=== PATIENT | male | born 1955 | race Caucasian/White ===

== ENCOUNTER 2016-09-14 16:58 | Emergency (ER) | payer OTHER ==
[~2016-09-14] VITALS: Ht 177.8 cm; Wt 120.0 kg
[~2016-09-14 16:58] MED LIST: ATEN100T PO; HYDR-3534 PO; LISI10TA3 PO; METF1000 PO; OMEP20TA PO; SIMV20TA PO
[2016-09-14 17:00] VITALS: BP 171/86; PULSE 100; RESP 20; TEMP 98.1; O2SAT 97
[2016-09-14] MEDS ORDERED: ASPI81CH CHEW (17:17)
[2016-09-14] MEDS ORDERED: OXYC1TAB35 PO (17:17)
[2016-09-14 18:07] LABS: AUTOMATED NEUTROPHIL # 7.4 TH/MM3 (1.8-7.7); BASOPHIL # 0.1 TH/MM3 (0-0.2); BASOPHIL % 0.6 % (0.0-2.0); EOSINOPHIL # 0.2 TH/MM3 (0-0.4); EOSINOPHIL % 1.9 % (0.0-4.0); HEMATOCRIT 40.9 % (39.0-51.0); HEMO FLAGS DIFF FINAL; LYMPH % 19.1 % (9.0-44.0); LYMPHOCYTE # 2.1 TH/MM3 (1.0-4.8); MEAN CELL VOLUME 91.5 FL (80.0-100.0); MEAN CORPUSCULAR HEMOGLOBIN 30.5 PG (27.0-34.0); MEAN CORPUSCULAR HGB CONC 33.3 % (32.0-36.0); MONO % 9.3 % (0.0-8.0); NEUT % 69.1 % (16.0-70.0); PLATELET COUNT 342 TH/MM3 (150-450); RED BLOOD COUNT 4.47 MIL/MM3 (4.50-5.90); RED CELL DISTRIBUTION WIDTH 13.4 % (11.6-17.2); WHITE BLOOD COUNT 10.7 TH/MM3 (4.0-11.0)
--- NOTE | 2016-09-14 18:09 | RADRPT ---
EXAM DATE/TIME: 09/14/2016 17:43 [place] COMPARISON: No previous studies available for comparison. INDICATIONS : Hematuria. ORAL CONTRAST: No oral contrast ingested. RADIATION DOSE: 12.14 CTDIvol (mGy) MEDICAL HISTORY : Carcinoma, prostate. Cardiovascular disease Hypertension. SURGICAL HISTORY : None. ENCOUNTER: Initial ACUITY: 1 day PAIN SCALE: 4/10 LOCATION: abdomen. TECHNIQUE: Volumetric scanning of the abdomen and pelvis was performed. Using automated exposure control and ad justment of the mA and/or kV according to patient size, radiation dose was kept as low as reasonably achievable to obtain optimal diagnostic quality images. DICOM format image data is available electro nically for review and comparison. FINDINGS: Lung bases are clear. Surgical staple line noted in the stomach. Spleen, adrenals and pancreas demons trate no acute findings. There is mild perinephric stranding but no hydronephrosis or focal mass seen on noncontrast CT. No calcified gallstones or biliary ductal dilatation identified. No bowel obstruction. No free air or free fluid. No adenopathy. There is a previous right total hip replacement. Chaidez catheter in bladder. CONCLUSION: 1. No acute findings within the abdomen. Mild perinephric stranding. No renal calculi or obstructive uropathy. No bladder calculi. Chaidez catheter in decompressed bladder. Previous right hip replacement. Mike Wooten MD on September 14, 2016 at 18:03 Board Certified Radiologist. This report was verified electronically.
[2016-09-14 18:15] LABS: APTT (PATIENT) 25.3 SEC (24.3-30.1); INTERNATIONAL NORMALIZED RATIO 0.9 RATIO; PROTHROMBIN TIME - PATIENT 10.2 SEC (9.8-11.6)
--- NOTE | 2016-09-14 18:15 | PD ---
HPI Chief Complaint: Complaint Time Seen by Provider: 18:12 Travel History International Travel<30 days: No Contact w/Intl Traveler<30days: No Traveled to known affect area: No History of Present Illness HPI 60-year-old male that presents to the ED for evaluation of hematuria. Patient has a history of prostate cancer for which she had surgery and seed radiation about 15 years ago. Per patient he has had no issues until today. Per patient he had some back pain for the past couple of weeks on the left flank but he wasn 't really to worry about it. Per patient today he feels like he has to urinate and also comes out is blood. He is never had this before. Denies taking any blood thinners. No injuries. No fevers chills or sweats. No chest pain. No shortness of breath. No back pain or abdominal pain. He has had no chemotherapy or radiation recently. He has no allergies to medication. Takes an aspirin once a day. Per patient his discomfort is 3 out of 10 and only when he urinates. PFSH Past Medical History Arthritis: Yes Autoimmune Disease: No Anxiety: Yes Depression: Yes Cancer: Yes (PROSTATE) Cardiovascular Problems: Yes Diabetes: Yes Patient Takes Glucophage: No Endocrine: Yes GERD: Yes Genitourinary: Yes Hypertension: Yes Implanted Vascular Access Dvce: Yes Musculoskeletal: Yes Neurologic: No Respiratory: Yes Radiation Therapy: Yes Sleep Apnea: Yes (USES C PAP) Ulcer: Yes Past Surgical History Body Medical Devices: LEFT ANKLE WITH PLATE Cardiac Surgery: Yes (ablation) Genitourinary Surgery: Yes (TURP) Oral Surgery: Yes (SINUS SX) Social History Alcohol Use: Yes Tobacco Use: No Substance Use: No Allergies-Medications (Allergen,Severity, Reaction): Coded Allergies: No Known Allergies (Unverified , 09/14/16) Reported Meds & Prescriptions Reported Meds & Active Scripts Active Cipro (Ciprofloxacin HCl) 500 Mg Tab 500 Mg PO BID 10 Days Reported Oxycodone-Acetaminophen 7.5-325 mg Tab 1 Tab PO Q6H PRN Aspirin 81 Mg Chew 81 Mg CHEW DAILY Simvastatin 20 Mg Tab 20 Mg PO DAILY Omeprazole 20 Mg Tab 20 Mg PO DAILY Metformin (Metformin HCl) 1,000 Mg Tab 1,000 Mg PO DAILY With a meal Atenolol 100 Mg Tab 100 Mg PO DAILY Review of Systems Except as stated in HPI: all other systems reviewed are Neg Physical Exam Narrative GENERAL: SKIN: Warm and dry. HEAD: Atraumatic. Normocephalic. EYES: Pupils equal and round. No scleral icterus. No injection or drainage. ENT: No nasal bleeding or discharge. Mucous membranes pink and moist. Tongue is midline. No uvula deviation. NECK: Trachea midline. No JVD. CARDIOVASCULAR: Regular rate and rhythm. No murmurs, S3, S4. RESPIRATORY: No accessory muscle use. Clear to auscultation. Breath sounds equal bilaterally. GASTROINTESTINAL: Abdomen soft, non-tender, nondistended. Hepatic and splenic margins not palpable. Genital: The with female nurse present. Testicles appear to be nontender with no masses. Patient does appear to have small amount of blood coming out of the urethra. No mass or discharge noted otherwise. MUSCULOSKELETAL: Extremities without clubbing, cyanosis, or edema. No obvious deformities. Full range of motion of the upper and lower extremities bilaterally. 2+ pulses bilaterally. NEUROLOGICAL: Awake and alert. No obvious cranial nerve deficits. Motor grossly within normal limits. Five out of 5 muscle strength in the arms and legs. Normal speech. PSYCHIATRIC: Appropriate mood and affect; insight and judgment normal. Data Data Last Documented VS Vital Signs Date Time Temp Pulse Resp B/P Pulse Ox O2 Delivery O2 Flow Rate FiO2 09/14/16 17:00 98.1 100 20 171/86 97 Room Air Orders Complete Blood Count With Diff (09/14/16 17:15) Basic Metabolic Panel (Bmp) (09/14/16 17:15) Prothrombin Time / Inr (Pt) (09/14/16 17:15) Act Partial Throm Time (Ptt) (09/14/16 17:15) Urinalysis - C+S If Indicated (09/14/16 17:15) Ct Abd/Pel W/O Iv Contrast (09/14/16 17:15) Iv Access Insert/Monitor (09/14/16 17:15) Urinary Catheter Management [place].Q8H (09/14/16 17:35) Urine Culture (09/14/16 17:30) Ciprofloxacin (Cipro) (09/14/16 18:45) Ciprofloxacin (Cipro) (09/14/16 18:45) Labs Laboratory Tests Test 09/14/16 09/14/16 17:20 17:30 White Blood Count 10.7 TH/MM3 Red Blood Count 4.47 MIL/MM3 Hemoglobin 13.6 GM/DL Hematocrit 40.9 % Mean Corpuscular Volume 91.5 FL Mean Corpuscular Hemoglobin 30.5 PG Mean Corpuscular Hemoglobin 33.3 % Concent Red Cell Distribution Width 13.4 % Platelet Count 342 TH/MM3 Mean Platelet Volume 7.8 FL Neutrophils (%) (Auto) 69.1 % Lymphocytes (%) (Auto) 19.1 % Monocytes (%) (Auto) 9.3 % Eosinophils (%) (Auto) 1.9 % Basophils (%) (Auto) 0.6 % Neutrophils # (Auto) 7.4 TH/MM3 Lymphocytes # (Auto) 2.1 TH/MM3 Monocytes # (Auto) 1.0 TH/MM3 Eosinophils # (Auto) 0.2 TH/MM3 Basophils # (Auto) 0.1 TH/MM3 CBC Comment DIFF FINAL Differential Comment Prothrombin Time 10.2 SEC Prothromb Time International 0.9 RATIO Ratio Activated Partial 25.3 SEC Thromboplast Time Sodium Level 141 MEQ/L Potassium Level 4.0 MEQ/L Chloride Level 106 MEQ/L Carbon Dioxide Level 27.3 MEQ/L Anion Gap 8 MEQ/L Blood Urea Nitrogen 18 MG/DL Creatinine 0.92 MG/DL Estimat Glomerular Filtration 83 ML/MIN Rate Random Glucose 108 MG/DL Calcium Level 9.4 MG/DL Urine Color DARK-RED Urine Turbidity CLOUDY Urine pH 6.0 Urine Specific [place] 1.029 Urine Protein 100 mg/dL Urine Glucose (UA) NEG mg/dL Urine Ketones NEG mg/dL Urine Occult Blood LARGE Urine Nitrite NEG Urine Bilirubin NEG Urine Urobilinogen LESS THAN 2.0 MG/DL Urine Leukocyte Esterase NEG Urine RBC /hpf Urine WBC /hpf Urine Bacteria OCC /hpf Microscopic Urinalysis Comment CULTURE INDICATED MDM Medical Decision Making Medical Screen Exam Complete: Yes Emergency Medical Condition: Yes Medical Record Reviewed: Yes Interpretation(s) CBC & BMP Diagram 09/14/16 17:20 Last Impressions Abdomen/Pelvis CT 09/14/16 1535 Signed Impressions: Service Date/Time: Wednesday, September 14, 2016 17:43 - CONCLUSION: 1. No acute findings within the abdomen. Mild perinephric stranding. No renal calculi or obstructive uropathy. No bladder calculi. Chaidez catheter in decompressed bladder. Previous right hip replacement. Mike Wooten MD UA shows bacteria and blood coags WNL Differential Diagnosis Hematuria versus cystitis versus kidney stone versus cancer versus mass Narrative Course 60-year-old male that presents to the ED for evaluation of hematuria. Patient was properly examined and was found to have signs and symptoms very consistent what appears to be hematuria. Patient had a Chaidez in placed to get a sample of the urine and per nursing he was lyndsay blood. No urine. Labs and imaging ordered. Labs and imaging show no sign of acute disease. Only hematuria and bacteriuria. Possible hemorrhagic cystitis. We'll treat with Cipro. Case discussed in my attending Dr. Reina who agrees with plan. Patient was told that he needs to follow with his urologist this week. He agrees and understands. See ED worsening symptoms. Chaidez was discontinued. Diagnosis Primary Impression: Hematuria Additional Impression: Hemorrhagic cystitis Referrals: Juan Ramon Moura MD Patient Instructions: General Instructions Additional Instructions: Follow up with Dr Moura this week. Take meds as prescribed. Blood should get better in the next 3 days. See ED if not or worst. Drink plenty of fluids. Med/Other Pt SpecificInfo: Prescription(s) given Scripts Ciprofloxacin (Cipro)500 Mg Nam426 Mg PO BID 10 Days Ref 0 Prov:Anitra Reina MD 09/14/16 Disposition: 01 DISCHARGE HOME Condition: Stable Inocencio Morton Sep 14, 2016 18:15
[2016-09-14 18:25] LABS: BICARBONATE 27.3 MEQ/L (21.0-32.0)
[2016-09-14 18:31] LABS: BACTERIA, URINE OCC /hpf; BLOOD, URINE LARGE (NEG); COMMENT (UR) CULTURE INDICATED; CULTURE IF INDICATED CULTURE INDICATED; GLUCOSE,URINE NEG (NEG); KETONE, URINE NEG (NEG); NITRITE,URINE NEG (NEG)
[2016-09-14 18:32] LABS: URINE COLOR DARK-RED (YELLW/STRAW)
[2016-09-14] MEDS ORDERED: CIPR-9 PO (18:43)
[2016-09-14] MEDS ORDERED: CIPROFLOXACIN 500 MG TAB PO ONE ×2 (18:45)
[2016-09-14 18:52] VITALS: BP 167/75; PULSE 89; RESP 16; O2SAT 98
== END 2016-09-14 19:04 | disposition home or self-care (01) ==
LOC: NEPE 16:58
DX: N30.91 Cystitis, unspecified with hematuria (principal); B96.89 Other specified bacterial agents as the cause of diseases classified elsewhere; Z85.46 Personal history of malignant neoplasm of prostate
CPT/HCPCS: 51702; 74176; 80048; 81001; 85025; 85610; 85730; 87086

== ENCOUNTER 2016-09-15 04:19 | Observation (INO) | payer OTHER ==
[~2016-09-15] VITALS: Ht 177.8 cm; Wt 120.0 kg
[~2016-09-15 04:19] MED LIST changes: +ASPI81CH CHEW; +CIPR-9 PO; -HYDR-3534 PO; -LISI10TA3 PO; +OXYC1TAB35 PO
[2016-09-15 04:29] VITALS: BP 153/74; PULSE 90; RESP 14; TEMP 98.2; O2SAT 97
--- NOTE | 2016-09-15 05:04 | PD ---
HPI Chief Complaint: Complaint Time Seen by Provider: 04:35 Travel History International Travel<30 days: No Contact w/Intl Traveler<30days: No Traveled to known affect area: No History of Present Illness HPI This is a 60-year-old male with a history of prostate cancer status post treatment with radiation and prostate seeds, diabetes mellitus, hypertension, who presents for the second time in 24 hours for inability to urinate. The patient was seen and evaluated yesterday for hematuria. At that time he was started on an antibiotic and discharged home. The patient states since being discharged, he's not been able to urinate. He denies any fevers, chills. He denies any shortness of breath. He denies any chest pain. PFSH Past Medical History Arthritis: Yes Autoimmune Disease: No Anxiety: Yes Depression: Yes Cancer: Yes (PROSTATE) Cardiovascular Problems: Yes (HTN) Diabetes: Yes Patient Takes Glucophage: Yes (METFORMIN 1000MG 0200) Endocrine: Yes GERD: Yes Genitourinary: Yes Hypertension: Yes Implanted Vascular Access Dvce: Yes Musculoskeletal: Yes Neurologic: No Respiratory: Yes Radiation Therapy: Yes Sleep Apnea: Yes (USES C PAP) Ulcer: Yes Past Surgical History Body Medical Devices: LEFT ANKLE WITH PLATE Cardiac Surgery: Yes (ablation) Genitourinary Surgery: Yes (TURP) Oral Surgery: Yes (SINUS SX) Other Surgery: Yes Social History Alcohol Use: Yes (OCC) Tobacco Use: No Substance Use: No Allergies-Medications (Allergen,Severity, Reaction): Coded Allergies: No Known Allergies (Unverified , 09/14/16) Reported Meds & Prescriptions Reported Meds & Active Scripts Active Cipro (Ciprofloxacin HCl) 500 Mg Tab 500 Mg PO BID 10 Days Reported Oxycodone-Acetaminophen 7.5-325 mg Tab 1 Tab PO Q6H PRN Aspirin 81 Mg Chew 81 Mg CHEW DAILY Simvastatin 20 Mg Tab 20 Mg PO DAILY Omeprazole 20 Mg Tab 20 Mg PO DAILY Metformin (Metformin HCl) 1,000 Mg Tab 1,000 Mg PO DAILY With a meal Atenolol 100 Mg Tab 100 Mg PO DAILY Review of Systems Except as stated in HPI: all other systems reviewed are Neg General / Constitutional: No: Fever, Chills HENT: No: Headaches, Lightheadedness Cardiovascular: No: Chest Pain or Discomfort, Palpitations Respiratory: No: Cough, Shortness of Breath Gastrointestinal: No: Nausea, Vomiting, Abdominal Pain Genitourinary: Positive: Hematuria (yesterday.), Other (inability to urinate.) Musculoskeletal: No: Weakness, Pain Neurologic: No: Weakness, Dizziness, Headache Physical Exam Narrative GENERAL: Well-nourished, well-developed patient, in no acute respiratory distress. SKIN: Focused skin assessment warm/dry. HEAD: Normocephalic/atraumatic. EYES: No scleral icterus. No injection or drainage. NECK: Supple, trachea midline. CARDIOVASCULAR: Regular rate and rhythm without murmurs, gallops, or rubs. RESPIRATORY: Breath sounds equal bilaterally. No accessory muscle use. GASTROINTESTINAL: Abdomen soft, questionable mildly distended in the suprapubic area. No rebound no guarding. The patient states he feels full in his bladder distribution. MUSCULOSKELETAL: No cyanosis, or edema. BACK: No CVA tenderness. NEUROLOGICAL: Awake and alert. Cranial nerves II through XII intact. Motor grossly within normal limits. Five out of 5 muscle strength in all muscle groups. Normal speech. Data Data Last Documented VS Vital Signs Date Time Temp Pulse Resp B/P Pulse Ox O2 Delivery O2 Flow Rate FiO2 09/15/16 06:33 80 18 09/15/16 04:29 98.2 153/74 97 Room Air Orders Complete Blood Count With Diff (09/15/16 04:36) Bladder/Catheter Irrigation (09/15/16 04:36) Bedside Glucose [place].AC&HS (09/15/16 06:20) Blood Glucose Goal (Criteria) (09/15/16 06:20) Hypoglycemia 70 Mg/Dl Or < (09/15/16 06:20) Notify Dr: Other (09/15/16 06:20) Dextrose 50% In [place] (Vial) Inj (D50w (Vi (09/15/16 06:30) Glucagon Inj (Glucagon Inj) (09/15/16 06:30) Insulin Aspart Supplemtl Scale (Novolog (09/15/16 07:00) Ceftriaxone Inj (Rocephin Inj) (09/15/16 06:30) Consult Urology (09/15/16 ) Place In Observation (09/15/16 ) Vital Signs (Adult) Q4H (09/15/16 06:20) Activity Oob Ad Liliam (09/15/16 06:20) Intake + Output [place].QSHIFT (09/15/16 06:20) Diet 1800 Ada Cons Carb (09/15/16 Breakfast) Sodium Chlor 0.9% 1000 Ml Inj (Ns 1000 M (09/15/16 06:20) Sodium Chloride 0.9% Flush (Ns Flush) (09/15/16 06:30) Sodium Chloride 0.9% Flush (Ns Flush) (09/15/16 09:00) Ondansetron Inj (Zofran Inj) (09/15/16 06:30) Comprehensive Metabolic Panel (09/16/16 06:00) Complete Blood Count With Diff (09/16/16 06:00) Scd Bilateral/Knee High [place].BID (09/15/16 06:20) Jimmy Bilateral/Knee High [place].QSHIFT (09/15/16 06:20) Acetaminophen (Tylenol) (09/15/16 06:30) Acetamin-Hydrocod 325-5 Mg ([place] 5-325 (09/15/16 06:30) Morphine Inj (Morphine Inj) (09/15/16 06:30) Docusate Sodium-Senna (Keyla-Colace) (09/15/16 09:00) Magnesium Hydroxide Liq (Milk Of Magnesi (09/15/16 06:30) Sennosides (Senokot) (09/15/16 06:30) Bisacodyl Supp (Dulcolax Supp) (09/15/16 06:30) Lactulose Liq (Lactulose Liq) (09/15/16 06:30) Atenolol (Tenormin) (09/15/16 09:00) Pravastatin (Pravachol) (09/15/16 09:00) Comprehensive Metabolic Panel (09/15/16 06:26) Admit Order (Ed Use Only) (09/15/16 06:28) Labs Laboratory Tests Test 09/15/16 05:07 White Blood Count 13.9 TH/MM3 Red Blood Count 4.18 MIL/MM3 Hemoglobin 12.7 GM/DL Hematocrit 38.0 % Mean Corpuscular Volume 90.8 FL Mean Corpuscular Hemoglobin 30.2 PG Mean Corpuscular Hemoglobin 33.3 % Concent Red Cell Distribution Width 13.6 % Platelet Count 329 TH/MM3 Mean Platelet Volume 8.1 FL Neutrophils (%) (Auto) 77.3 % Lymphocytes (%) (Auto) 14.5 % Monocytes (%) (Auto) 7.2 % Eosinophils (%) (Auto) 0.5 % Basophils (%) (Auto) 0.5 % Neutrophils # (Auto) 10.7 TH/MM3 Lymphocytes # (Auto) 2.0 TH/MM3 Monocytes # (Auto) 1.0 TH/MM3 Eosinophils # (Auto) 0.1 TH/MM3 Basophils # (Auto) 0.1 TH/MM3 CBC Comment DIFF FINAL Differential Comment MDM Medical Decision Making Medical Screen Exam Complete: Yes Emergency Medical Condition: Yes Differential Diagnosis Urinary outlet obstruction versus hematuria versus hemorrhagic cystitis versus bladder cancer Narrative Course 60-year-old male who presents for the second time in 24 hours for inability to urinate. The patient states he's passing bright red blood. But can't empty his bladder. He's had a three-way bladder irrigation done here. He has had clearing of the blood. He'll be admitted to the hospital and have a urology consult. He'll be admitted under observation. Diagnosis Primary Impression: Hematuria Additional Impressions: Inability to urinate History of prostate cancer Admitting Information Admitting Physician Requests: Observation Liam Watson MD Sep 15, 2016 05:04
[2016-09-15 05:46] LABS: AUTOMATED NEUTROPHIL # 10.7 TH/MM3 (1.8-7.7); BASOPHIL # 0.1 TH/MM3 (0-0.2); BASOPHIL % 0.5 % (0.0-2.0); EOSINOPHIL # 0.1 TH/MM3 (0-0.4); EOSINOPHIL % 0.5 % (0.0-4.0); HEMO FLAGS DIFF FINAL; LYMPH % 14.5 % (9.0-44.0); MEAN CELL VOLUME 90.8 FL (80.0-100.0); MEAN CORPUSCULAR HEMOGLOBIN 30.2 PG (27.0-34.0); MEAN CORPUSCULAR HGB CONC 33.3 % (32.0-36.0); MONO % 7.2 % (0.0-8.0); NEUT % 77.3 % (16.0-70.0); PLATELET COUNT 329 TH/MM3 (150-450); RED BLOOD COUNT 4.18 MIL/MM3 (4.50-5.90); RED CELL DISTRIBUTION WIDTH 13.6 % (11.6-17.2); WHITE BLOOD COUNT 13.9 TH/MM3 (4.0-11.0)
[2016-09-15] MEDS ORDERED: ACETAMINOPHEN 325 MG TAB PO PRN (06:30)
[2016-09-15] MEDS ORDERED: MAGNESIUM HYDROXIDE SUSP 30 ML CUP PO PRN (06:30)
[2016-09-15] MEDS ORDERED: ONDANSETRON HCL 4 MG/2 ML VIAL IVP PRN (06:30)
[2016-09-15] MEDS ORDERED: BISACODYL 10 MG SUPP RECTAL PRN (06:30)
[2016-09-15] MEDS ORDERED: SODIUM CHLORIDE 0.9% FLUSH 10 ML FLUSH IV FLUSH PRN (06:30)
[2016-09-15] MEDS ORDERED: GLUCAGON 1 MG/ML VIAL OTHER PRN (06:30)
[2016-09-15] MEDS ORDERED: LACTULOSE SYRUP 20 GM/30 ML CUP PO PRN (06:30)
[2016-09-15] MEDS ORDERED: SENNOSIDES 8.6 MG TAB PO PRN (06:30)
[2016-09-15] MEDS ORDERED: DEXTROSE 50% IN WATER 50 ML VIAL(D50) IV PRN (06:30)
[2016-09-15] MEDS: cefTRIAXone INJ 1,000 MG in SODIUM CHLORIDE 0.9% INJ 100 ML IV SCH (06:44)
[2016-09-15] MEDS: SODIUM CHLOR 0.9% 1000 ML INJ 1,000 ML IV SCH ×2 (06:44→17:42)
[2016-09-15] MEDS: INSULIN ASPART SUPPLEMENTAL SCALE SQ SCH ×4 (07:30→20:30)
[2016-09-15] MEDS: ACETAMINOPHEN/HYDROcodone 325 MG/5 MG TAB PO PRN (07:45)
[2016-09-15 08:04] VITALS: BP 160/75; PULSE 79; RESP 18; TEMP 98.4; O2SAT 96
--- NOTE | 2016-09-15 09:54 | PD.PN.STU ---
Subjective Remarks Patient is a 60 year old male with a one day history of painful hematuria with straining as well as pelvic fullness. Initial onset of symptoms began yesterday afternoon while shopping, initially as lyndsay blood with burning and slowly becoming more clear. He presented to [place] ED shortly thereafter where antibiotics and a melendez catheter were administered with immediate return of urine. He was sent home but later that evening was unable to urinate and returned to the ED, where placement of melendez catheter provided immediate relief and return of urine. He states while urinating he experienced 4/10 burning pain with straining. Currently he is in mild discomfort from the catheter but otherwise states no pain, nausea, vomiting, fevers, chills, cough, palpitations , back pain, or prior episodes of hematuria or straining with urination. He states he has no history of renal stones nor renal impairment. He has a history of stable prostate carcinoma treated with prostate seeding. Objective Vitals Vital Signs Date Time Temp Pulse Resp B/P Pulse Ox O2 Delivery O2 Flow Rate FiO2 09/15/16 08:04 98.4 79 18 160/75 96 09/15/16 06:33 80 18 09/15/16 04:29 98.2 90 14 153/74 97 Room Air I/O 09/14/16 09/14/16 09/14/16 09/15/16 09/15/16 09/15/16 07:00 15:00 23:00 07:00 15:00 23:00 Output Total 1000 ml 2550 ml Balance -1000 ml -2550 ml Output Urine Total 1000 ml 2550 ml Result Diagram: 09/15/16 0507 Other Results Laboratory Tests Test 09/15/16 05:07 White Blood Count 13.9 TH/MM3 Red Blood Count 4.18 MIL/MM3 Hemoglobin 12.7 GM/DL Hematocrit 38.0 % Mean Corpuscular Volume 90.8 FL Mean Corpuscular Hemoglobin 30.2 PG Mean Corpuscular Hemoglobin 33.3 % Concent Red Cell Distribution Width 13.6 % Platelet Count 329 TH/MM3 Mean Platelet Volume 8.1 FL Neutrophils (%) (Auto) 77.3 % Lymphocytes (%) (Auto) 14.5 % Monocytes (%) (Auto) 7.2 % Eosinophils (%) (Auto) 0.5 % Basophils (%) (Auto) 0.5 % Neutrophils # (Auto) 10.7 TH/MM3 Lymphocytes # (Auto) 2.0 TH/MM3 Monocytes # (Auto) 1.0 TH/MM3 Eosinophils # (Auto) 0.1 TH/MM3 Basophils # (Auto) 0.1 TH/MM3 CBC Comment DIFF FINAL Differential Comment Vital Signs Date Time Temp Pulse Resp B/P Pulse Ox O2 Delivery O2 Flow Rate FiO2 09/15/16 08:04 98.4 79 18 160/75 96 09/15/16 06:33 80 18 09/15/16 04:29 98.2 90 14 153/74 97 Room Air Imaging Imaging from the prior day noted mild perinephric stranding without renal caliculi, masses or otherwise abnormalities. Melendez noted to be in place at that time. Prior right hip replacement noted. Objective Remarks General- Patient is resting well in no acute distress. Cardiovascular- Regular rate and rhythm, no rubs gallops or murmurs Respiratory- Clear breath sounds heard bilaterally Abdominal- No masses, discomfort, or pain with abdominal palpitation Medications and IVs Current Medications Medications (Trade) Dose Ordered Sig/[place] Route Start Time Stop Time Status Last Admin (D50w (Vial) Inj) 50 ml UNSCH PRN IV 09/15/16 06:30 Glucagon 1 mg 1 mg UNSCH PRN OTHER 09/15/16 06:30 Ceftriaxone Sodium 1000 mg/ Sodium Chloride 100 ml @ 200 mls/hr DAILY@0600 IV 09/15/16 06:30 09/15/16 06:44 (NS 1000 ml Inj) 1,000 ml @ 100 mls/hr Q10H IV 09/15/16 06:20 09/15/16 06:44 (NS Flush) 2 ml UNSCH PRN IV FLUSH 09/15/16 06:30 (NS Flush) 2 ml BID IV FLUSH 09/15/16 09:00 (Zofran Inj) 4 mg Q6H PRN IVP 09/15/16 06:30 (Tylenol) 650 mg Q6H PRN PO 09/15/16 06:30 ([place] 5-325 Mg) 1 tab Q4H PRN PO 09/15/16 06:30 09/15/16 07:45 (Morphine Inj) 2 mg Q3H PRN IV 09/15/16 06:30 (Keyla-Colace) 1 tab BID PO 09/15/16 09:00 (Milk Of Magnesia Liq) 30 ml Q12H PRN PO 09/15/16 06:30 (Senokot) 17.2 mg Q12H PRN PO 09/15/16 06:30 (Dulcolax Supp) 10 mg DAILY PRN RECTAL 09/15/16 06:30 (Lactulose Liq) 30 ml DAILY PRN PO 09/15/16 06:30 (Tenormin) 100 mg DAILY PO 09/15/16 09:00 (Pravachol) 40 mg DAILY PO 09/15/16 09:00 A/P Assessment and Plan Patient likely has urinary retention secondary to hx of prostate cancer and UTI. Urinalysis demonstrates presence of bacteria, cultures pending. Due to inability to urinate freely, melendez catheter may be necessary for next week while regiment of Cipro is completed, or until patient can freely urinate without straining. Discharge Planning Follow up with established urologist Dr. Urbano in one week. If fever, chills, back pain, or hematuria develops, return to ED for additional assessment. Brittney Zhu M3 Sep 15, 2016 09:54
[2016-09-15] MEDS: ATENOLOL 100 MG TAB PO SCH (11:37)
[2016-09-15] MEDS: DOCUSATE SODIUM 50 MG/SENNA 8.6 MG TAB PO SCH ×2 (11:37→20:30)
[2016-09-15] MEDS: SODIUM CHLORIDE 0.9% FLUSH 10 ML FLUSH IV FLUSH SCH ×2 (11:38→20:29)
[2016-09-15] MEDS: PRAVASTATIN SOD 40 MG TAB PO SCH (11:38)
[2016-09-15 11:47] VITALS: BP 141/68; PULSE 77; RESP 18; TEMP 98.3; O2SAT 95
[2016-09-15 12:11] LABS: ANION GAP 9 MEQ/L (5-15); AST (GOT) 17 U/L (15-37); BICARBONATE 27.1 MEQ/L (21.0-32.0); BLOOD UREA NITROGEN 24 MG/DL (7-18); CHLORIDE 104 MEQ/L (98-107); GLOMERULAR FILTRATION RATE 87 ML/MIN (>89); POTASSIUM 3.5 MEQ/L (3.5-5.1); SODIUM (NA) 140 MEQ/L (136-145)
[2016-09-15 12:15] LABS: ALKALINE PHOSPHATASE 65 U/L (45-117); ALT (GPT) 30 U/L (12-78); TOTAL BILIRUBIN ADULT 0.3 MG/DL (0.2-1.0)
--- NOTE | 2016-09-15 13:08 | MB ---
cc: LYRIC GEORGES MD DATE OF CONSULTATION 09/15/2016 REASON FOR CONSULTATION 1. Urinary retention. 2. Gross hematuria. 3. History of prostate cancer. HISTORY OF PRESENT ILLNESS The patient is a 60-year-old male with a history of prostate cancer status post external beam radiation therapy with brachytherapy who presented to the ER last night for the second time in 24 hours with inability to urinate. On September 13, 2016, he came into the ER due to gross hematuria with mild dysuria. At that time he was given Cipro and was discharged home. However, once he was home overnight, he was unable to urinate. He would get a strong urge to urinate. He could not start his stream. Only a small dribble would come out. He denied any fevers, chills, flank pain, nausea, vomiting, shortness of breath or chest pain. He denies prior episodes. He came back to the ER where a three-way Chaidez catheter was inserted and he immediately felt relief. He was started on continuous bladder irrigation and Urology was consulted. Currently the patient is complaining of a little discomfort with the catheter but he otherwise is feeling better. He denies prior episodes of retention in the past. He denies history of kidney stones as well. REVIEW OF SYSTEMS See HPI, otherwise all systems reviewed otherwise are negative. PAST MEDICAL HISTORY Significant for - 1. Prostate cancer. 2. Hypertension. 3. Diabetes. 4. Gastroesophageal reflux disease. 5. Obstructive sleep apnea. SURGICAL HISTORY 1. History of a TURP. 2. Sinus surgery. 3. Status post external beam radiation therapy with brachytherapy for prostate cancer. 4. Status post left ankle surgery. SOCIAL HISTORY Denies any tobacco or illicit drug use. Does drink socially. ALLERGIES No known drug allergies. HOME MEDICATIONS 1. Aspirin 81 mg p.o. daily. 1. Simvastatin 20 mg p.o. daily. 1. Omeprazole 20 mg p.o. daily. 2. Atenolol 100 mg p.o. daily. 3. Metformin 1000 mg p.o. daily. FAMILY HISTORY Denies urolithiasis or genitourinary malignancies. PHYSICAL EXAMINATION VITAL SIGNS: Temperature 98.3, pulse 77, respiratory rate 18, BP 141/68, sating 95% on room air. GENERAL: He is alert and oriented x 3. In no apparent distress. Pleasant, cooperative gentleman who appears his stated age. HEAD: Normocephalic, atraumatic. NECK: Supple. Trachea is midline. No JVD. EYES: No scleral icterus. Extraocular muscles intact. LUNGS: Clear to auscultation bilaterally. No wheezes, rales or rhonchi. Nonlabored respirations. HEART: Regular rhythm. No murmurs, gallops or rubs. ABDOMEN: Soft, obese, nontender, nondistended. Positive bowel sounds. GENITOURINARY EXAM: He has no CVA tenderness bilaterally. His penis is circumcised. Testes are descended bilaterally, normal in size and consistency. RECTAL EXAM: Not indicated at this time. He has a three-way Chaidez catheter draining crystal clear urine on moderate CBI drip. EXTREMITIES: Nontender. No clubbing, cyanosis or edema. SKIN: No ulcers or rashes. PSYCH: Normal affect. NEUROLOGICAL: Cranial nerves II-XII intact. Strength 5/5 in all four extremities. LABS White count 13.9, hemoglobin 12.7, hematocrit 38.0, platelet count 329. Sodium 140, potassium 3.5, chloride 104, bicarb 27.1, creatinine 0.89, BUN 24. IMAGING STUDIES He had a CT of the abdomen and pelvis without contrast done on September 14, 2016. The images were reviewed by myself. A Chaidez catheter was present in the bladder. No evidence of hydronephrosis or renal calculi. ASSESSMENT The patient is a 60-year-old male with a history of prostate cancer status post external beam radiation therapy with brachytherapy who presents with gross hematuria and urinary retention. PLAN 1. We will wean the continuous bladder irrigation until his urine is clear, then discharged home with a Chaidez catheter. 2. We will start the patient on Flomax 0.4 mg daily. 3. Continue the patient on antibiotics pending urine culture. 4. He can then follow up as an outpatient for a void trial. Thank you for this consult. MD JEFFY Rapp/ISAI /12:23 PM /12:40 PM
--- NOTE | 2016-09-15 13:39 | HHI.HP ---
[facility] Primary [facility] Physician Sary Drew M.D. Admission Diagnosis hematuria, inability to urinate, prostate cancer Diagnoses: Travel History International Travel<30 Days: No Contact w/Intl Traveler <30 Da: No Traveled to Known Affected Are: No Past Family Social History Allergies: Coded Allergies: No Known Allergies (Unverified , 09/14/16) Physical Exam Vital Signs Vital Signs Date Time Temp Pulse Resp B/P Pulse Ox O2 Delivery O2 Flow Rate FiO2 09/15/16 11:47 98.3 77 18 141/68 95 09/15/16 11:47 98.3 77 18 141/68 95 09/15/16 08:04 98.4 79 18 160/75 96 09/15/16 08:04 98.4 79 18 160/75 96 09/15/16 06:33 80 18 09/15/16 04:29 98.2 90 14 153/74 97 Room Air Physical Exam GENERAL: This is a well-nourished, well-developed patient, in no apparent distress. SKIN: No rashes, ecchymoses or lesions. Cool and dry. HEAD: Atraumatic. Normocephalic. No temporal or scalp tenderness. EYES: Pupils equal round and reactive. Extraocular motions intact. No scleral icterus. No injection or drainage. ENT: Nose without bleeding, purulent drainage or septal hematoma. Throat without erythema, tonsillar hypertrophy or exudate. Uvula midline. Airway patent. NECK: Trachea midline. No JVD or lymphadenopathy. Supple, nontender, no meningeal signs. CARDIOVASCULAR: Regular rate and rhythm without murmurs, gallops, or rubs. RESPIRATORY: Clear to auscultation. Breath sounds equal bilaterally. No wheezes , rales, or rhonchi. GASTROINTESTINAL: Abdomen soft, non-tender, nondistended. No hepato-splenomegaly , or palpable masses. No guarding. MUSCULOSKELETAL: Extremities without clubbing, cyanosis, or edema. No joint tenderness, effusion, or edema noted. No calf tenderness. Negative Homans sign bilaterally. NEUROLOGICAL: Awake and alert. Cranial nerves II through XII intact. Motor and sensory grossly within normal limits. Five out of 5 muscle strength in all muscle groups. Normal speech. Laboratory Laboratory Tests Test 09/15/16 09/15/16 05:07 11:22 White Blood Count 13.9 Red Blood Count 4.18 Hemoglobin 12.7 Hematocrit 38.0 Mean Corpuscular Volume 90.8 Mean Corpuscular Hemoglobin 30.2 Mean Corpuscular Hemoglobin 33.3 Concent Red Cell Distribution Width 13.6 Platelet Count 329 Mean Platelet Volume 8.1 Neutrophils (%) (Auto) 77.3 Lymphocytes (%) (Auto) 14.5 Monocytes (%) (Auto) 7.2 Eosinophils (%) (Auto) 0.5 Basophils (%) (Auto) 0.5 Neutrophils # (Auto) 10.7 Lymphocytes # (Auto) 2.0 Monocytes # (Auto) 1.0 Eosinophils # (Auto) 0.1 Basophils # (Auto) 0.1 CBC Comment DIFF FINAL Differential Comment Sodium Level 140 Potassium Level 3.5 Chloride Level 104 Carbon Dioxide Level 27.1 Anion Gap 9 Blood Urea Nitrogen 24 Creatinine 0.89 Estimat Glomerular Filtration 87 Rate Random Glucose 127 Calcium Level 8.9 Total Bilirubin 0.3 Aspartate Amino Transf 17 (AST/SGOT) Alanine Aminotransferase 30 (ALT/SGPT) Alkaline Phosphatase 65 Total Protein 7.7 Albumin 3.6 Result Diagram: 09/15/16 0507 09/15/16 1122 Teddy Patterson MD Sep 15, 2016 1:39 pm Lexii Escobar PA-C Sep 15, 2016 2:25 pm
[2016-09-15] MEDS: TAMSULOSIN HCL 0.4 MG CAP PO SCH (13:52)
--- NOTE | 2016-09-15 14:00 | HHI.HP ---
[facility] Sary Drew M[facility]. Admission Diagnosis hematuria, inability to urinate, prostate cancer Diagnoses: Chief Complaint: hematuria, urinary retention Travel History International Travel<30 Days: No Contact w/Intl Traveler <30 Da: No Traveled to Known Affected Are: No History of Present Illness Written by Lexii Escobar, acting as scribe for Dr. Patterson on 09/15/16 at 14:00. 60-year-old male with history of prostate cancer 2008 s/p TURP/radiation, YO on CPAP at night, HTN, HLD, DM, atrial fibrillation s/p ablation, presents with a 1 day history hematuria and urinary retention. The patient initially presented to the ER last night 09/14/16 at 6pm with hematuria and urinary retention, Chaidez was placed and removed, sent home on antibiotics Cipro 500mg bid and instructed to follow up with urologist Dr. Moura, however after returning home he was unable to urinate. He complains of a moderate amount of suprapubic bladder pressure without radiation, worse with sitting upright. The patient reports he was only able to produce very small dribble of urine output. He denies any fevers/chills. Denies any nausea/vomiting or diarrhea/ constipation but does report decreased appetite. Since his arrival to the ER today, a Chaidez has been placed and started on continuous bladder irrigation. He has had significant relief but still with mild amount of bladder pressure and hematuria that is clearing up. He has no other medical complaints at this time. Review of Systems Except as stated in HPI: all other systems reviewed are Neg Past Family Social History Past Medical History Atrial fibrillation s/p ablation Hypertension Hyperlipidemia Diabetes Mellitus Prostate cancer YO on CPAP GERD Past Surgical History Cardiac ablation Right total hip arthroplasty Left tibia surgery after [facility] External beam radiation with brachytherapy for prostate cancer Reported Medications Reported Meds & Active Scripts Active Cipro (Ciprofloxacin HCl) 500 Mg Tab 500 Mg PO BID 10 Days Reported Oxycodone-Acetaminophen 7.5-325 mg Tab 1 Tab PO Q6H PRN Aspirin 81 Mg Chew 81 Mg CHEW DAILY Simvastatin 20 Mg Tab 20 Mg PO DAILY Omeprazole 20 Mg Tab 20 Mg PO DAILY Metformin (Metformin HCl) 1,000 Mg Tab 1,000 Mg PO DAILY With a meal Atenolol 100 Mg Tab 100 Mg PO DAILY Allergies: Coded Allergies: No Known Allergies (Unverified , 09/14/16) Active Ordered Medications Current Medications Medications (Trade) Dose Ordered Sig/Kedar Route Start Time Stop Time Status Last Admin (D50w (Vial) Inj) 50 ml UNSCH PRN IV 09/15/16 06:30 Glucagon 1 mg 1 mg UNSCH PRN OTHER 09/15/16 06:30 Ceftriaxone Sodium 1000 mg/ Sodium Chloride 100 ml @ 200 mls/hr DAILY@0600 IV 09/15/16 06:30 09/15/16 06:44 (NS 1000 ml Inj) 1,000 ml @ 100 mls/hr Q10H IV 09/15/16 06:20 09/15/16 06:44 (NS Flush) 2 ml UNSCH PRN IV FLUSH 09/15/16 06:30 (NS Flush) 2 ml BID IV FLUSH 09/15/16 09:00 (Zofran Inj) 4 mg Q6H PRN IVP 09/15/16 06:30 (Tylenol) 650 mg Q6H PRN PO 09/15/16 06:30 (Marmaduke 5-325 Mg) 1 tab Q4H PRN PO 09/15/16 06:30 09/15/16 07:45 (Morphine Inj) 2 mg Q3H PRN IV 09/15/16 06:30 (Keyla-Colace) 1 tab BID PO 09/15/16 09:00 09/15/16 11:37 (Milk Of Magnesia Liq) 30 ml Q12H PRN PO 09/15/16 06:30 (Senokot) 17.2 mg Q12H PRN PO 09/15/16 06:30 (Dulcolax Supp) 10 mg DAILY PRN RECTAL 09/15/16 06:30 (Lactulose Liq) 30 ml DAILY PRN PO 09/15/16 06:30 (Tenormin) 100 mg DAILY PO 09/15/16 09:00 09/15/16 11:37 (Pravachol) 40 mg DAILY PO 09/15/16 09:00 09/15/16 11:38 (Flomax) 0.4 mg DAILY PO 09/15/16 12:15 09/15/16 13:52 Family History Father with heart disease, heavy smoker Mother with advanced arthritis and ESRD, age 71 Social History Denies tobacco use Occasional alcohol use Denies any illicit drug use Physical Exam Vital Signs Vital Signs Date Time Temp Pulse Resp B/P Pulse Ox O2 Delivery O2 Flow Rate FiO2 09/15/16 11:47 98.3 77 18 141/68 95 09/15/16 11:47 98.3 77 18 141/68 95 09/15/16 08:04 98.4 79 18 160/75 96 09/15/16 08:04 98.4 79 18 160/75 96 09/15/16 06:33 80 18 09/15/16 04:29 98.2 90 14 153/74 97 Room Air Physical Exam GENERAL: Well-nourished, well-developed male patient in NAD. SKIN: Warm and dry. No rash. HEAD: Normocephalic. Atraumatic. EYES: Pupils equal and round. No scleral icterus. No injection or drainage. ENT: No nasal bleeding or discharge. Mucous membranes pink and moist. NECK: Supple. Trachea midline. CARDIOVASCULAR: Regular rate and rhythm. S1, S2 noted. No murmur appreciated. RESPIRATORY: No accessory muscle use. Clear to auscultation. Breath sounds equal bilaterally. GASTROINTESTINAL: Abdomen soft, non-tender, nondistended. Normoactive bowel sounds x4. GENITOURINARY: Chaidez in place with pale yellow urine mixed with bright red blood /clots. Suprapubic tenderness to palpation. MUSCULOSKELETAL: No obvious deformities. Extremities without clubbing, cyanosis , or edema. NEUROLOGICAL: Awake and alert. No obvious cranial nerve deficits. Motor grossly within normal limits. 5/5 muscle strength in bilateral upper and lower extremities. Normal speech. PSYCHIATRIC: Appropriate mood and affect; insight and judgment normal. Laboratory Laboratory Tests Test 09/15/16 09/15/16 05:07 11:22 White Blood Count 13.9 Red Blood Count 4.18 Hemoglobin 12.7 Hematocrit 38.0 Mean Corpuscular Volume 90.8 Mean Corpuscular Hemoglobin 30.2 Mean Corpuscular Hemoglobin 33.3 Concent Red Cell Distribution Width 13.6 Platelet Count 329 Mean Platelet Volume 8.1 Neutrophils (%) (Auto) 77.3 Lymphocytes (%) (Auto) 14.5 Monocytes (%) (Auto) 7.2 Eosinophils (%) (Auto) 0.5 Basophils (%) (Auto) 0.5 Neutrophils # (Auto) 10.7 Lymphocytes # (Auto) 2.0 Monocytes # (Auto) 1.0 Eosinophils # (Auto) 0.1 Basophils # (Auto) 0.1 CBC Comment DIFF FINAL Differential Comment Sodium Level 140 Potassium Level 3.5 Chloride Level 104 Carbon Dioxide Level 27.1 Anion Gap 9 Blood Urea Nitrogen 24 Creatinine 0.89 Estimat Glomerular Filtration 87 Rate Random Glucose 127 Calcium Level 8.9 Total Bilirubin 0.3 Aspartate Amino Transf 17 (AST/SGOT) Alanine Aminotransferase 30 (ALT/SGPT) Alkaline Phosphatase 65 Total Protein 7.7 Albumin 3.6 Result Diagram: 09/15/16 0507 09/15/[address] abd/pelvis 09/14/16 images reviewed, shows no acute findings, mild perinephric stranding; no renal calculi or obstructive uropathy. Assessment and Plan Problem List: (1) Hemorrhagic cystitis ICD Code: N30.91 Status: Acute (2) Inability to urinate ICD Code: R33.9 Status: Acute (3) Hematuria ICD Code: R31.9 Status: Acute Assessment and Plan 60-year-old male with history of prostate cancer 2008 s/p TURP/radiation, YO on CPAP at night, HTN, HLD, DM, atrial fibrillation s/p ablation, presents with a 1 day history hematuria and urinary retention. Acute Hematuria & Urinary Retention: suspect secondary to history of prostate cancer s/p radiation/TURP; now with hemorrhagic cystitis. CT abd/pelvis 09/14 images reviewed, shows no acute findings, mild perinephric stranding; no renal calculi or obstructive uropathy. S/p Chaidez placement in ER, started on CBI. -hold patient's aspirin for now -Consulted urology, seen by Dr. Moura -Started on flomax 0.4mg daily -Continue CBI until urine is clear, then plan to discharge with Chaidez in place -Follow up with urologist Dr. Moura as outpatient after discharge for void trial -Monitor BMP and H&H, currently stable -Continue IVF, Pain control with Marmaduke prn and IV morphine prn UTI: UA on 09/14 with occ bacteria. +leukocytosis with WBC 13.9K. Preliminary urine culture with no growth so far. -continue on IV Rocephin 1G qd -monitor urine culture Diabetes Mellitus: chronic, hold patient's metformin for now -Monitor accu-checks and cover with low dose SSI Hypertension/Hyperlipidemia: chronic, stable -continue patient's atenolol and statin -monitor BP, adjust antihypertensives as needed YO: on CPAP, chronic -consult RT to continue patient's CPAP All other chronic medical conditions stable, continue home medications as appropriate. DVT Prophylaxis: teds/SCDs, avoid chemical prophylaxis with gross hematuria. This note was transcribed by nadia [Lexii Escobar]. I, Dr. Teddy Patterson personally performed the history, physical exam, and medical decision making; and confirmed the accuracy of the information in the transcribed note. Authenticated by Dr. Teddy Patterson on 09/15/16 at 1410. Code Status Full Code Discussed Condition With Patient, patient's at bedside, CDU Lexii Denise PA-C Sep 15, 2016 14:00 Teddy Patterson MD Sep 15, 2016 16:41
[2016-09-15 16:28] VITALS: BP 118/62; PULSE 67; RESP 16; TEMP 97.4; O2SAT 95
[2016-09-15 17:43] VITALS: BP 151/80; PULSE 67; RESP 18; TEMP 98.8; O2SAT 94
[2016-09-15 20:44] VITALS: BP 143/78; PULSE 66; RESP 22; TEMP 98; O2SAT 98
[2016-09-15] MEDS: MORPHINE SULFATE 4 MG/ML INJ IV PRN (23:25)
[2016-09-16] VITALS (7 sets, daily range): BP systolic 131–166; BP diastolic 66–88; PULSE 65–78; RESP 18–20; TEMP 97.7–98.5; O2SAT 94–98
[2016-09-16 06:02] LABS: AUTOMATED NEUTROPHIL # 7.7 TH/MM3 (1.8-7.7); BASOPHIL # 0.1 TH/MM3 (0-0.2); BASOPHIL % 0.5 % (0.0-2.0); EOSINOPHIL # 0.2 TH/MM3 (0-0.4); HEMATOCRIT 36.5 % (39.0-51.0); HEMO FLAGS DIFF FINAL; LYMPH % 25.4 % (9.0-44.0); LYMPHOCYTE # 3.1 TH/MM3 (1.0-4.8); MEAN CELL VOLUME 90.6 FL (80.0-100.0); MEAN CORPUSCULAR HEMOGLOBIN 31.7 PG (27.0-34.0); MONO % 8.9 % (0.0-8.0); NEUT % 63.2 % (16.0-70.0); PLATELET COUNT 308 TH/MM3 (150-450); RED BLOOD COUNT 4.02 MIL/MM3 (4.50-5.90); RED CELL DISTRIBUTION WIDTH 13.7 % (11.6-17.2); WHITE BLOOD COUNT 12.2 TH/MM3 (4.0-11.0)
[2016-09-16] MEDS: SODIUM CHLOR 0.9% 1000 ML INJ 1,000 ML IV SCH ×3 (06:06→23:56)
[2016-09-16] MEDS: cefTRIAXone INJ 1,000 MG in SODIUM CHLORIDE 0.9% INJ 100 ML IV SCH (06:06)
[2016-09-16] MEDS: INSULIN ASPART SUPPLEMENTAL SCALE SQ SCH ×4 (06:10→20:33)
[2016-09-16 06:24] LABS: ANION GAP 7 MEQ/L (5-15); AST (GOT) 20 U/L (15-37); BICARBONATE 27.8 MEQ/L (21.0-32.0); BLOOD UREA NITROGEN 17 MG/DL (7-18); CHLORIDE 102 MEQ/L (98-107); GLOMERULAR FILTRATION RATE 102 ML/MIN (>89); POTASSIUM 3.7 MEQ/L (3.5-5.1); SODIUM (NA) 137 MEQ/L (136-145)
[2016-09-16 06:26] LABS: ALT (GPT) 28 U/L (12-78)
[2016-09-16 06:28] LABS: ALKALINE PHOSPHATASE 69 U/L (45-117); TOTAL BILIRUBIN ADULT 0.4 MG/DL (0.2-1.0)
[2016-09-16] MEDS: MORPHINE SULFATE 4 MG/ML INJ IV PRN (06:37)
--- NOTE | 2016-09-16 07:43 | HHI.PR ---
Subjective Patient symptoms today c/o bladder pain. Denies fevers. small clots overnight. Objective Vital Signs Vital Signs Date Time Temp Pulse Resp B/P Pulse Ox O2 Delivery O2 Flow Rate FiO2 09/16/16 04:00 98.0 78 18 143/68 98 09/15/16 20:44 98.0 66 22 143/78 98 09/15/16 17:43 98.8 67 18 151/80 94 09/15/16 16:28 97.4 67 16 118/62 95 09/15/16 11:47 98.3 77 18 141/68 95 09/15/16 11:47 98.3 77 18 141/68 95 09/15/16 08:04 98.4 79 18 160/75 96 09/15/16 08:04 98.4 79 18 160/75 96 Intake & Output 09/16/16 09/16/16 07:00 19:00 Intake Total 950 ml Output Total 2900 ml 500 ml Balance -1950 ml -500 ml Intake IV Total 950 ml Output Urine Total 2900 ml 500 ml # Voids 2 Result Diagram: 09/16/16 04309/16/16 0431 Objective Remarks NAD. A/O x 3 abd soft urine clear Medications and IVs Current Medications Medications (Trade) Dose Ordered Sig/Kedar Route Start Time Stop Time Status Last Admin (D50w (Vial) Inj) 50 ml UNSCH PRN IV 09/15/16 06:30 Glucagon 1 mg 1 mg UNSCH PRN OTHER 09/15/16 06:30 Ceftriaxone Sodium 1000 mg/ Sodium Chloride 100 ml @ 200 mls/hr DAILY@0600 IV 09/15/16 06:30 09/16/16 06:06 (NS 1000 ml Inj) 1,000 ml @ 100 mls/hr Q10H IV 09/15/16 06:20 09/16/16 06:06 (NS Flush) 2 ml UNSCH PRN IV FLUSH 09/15/16 06:30 (NS Flush) 2 ml BID IV FLUSH 09/15/16 09:00 (Zofran Inj) 4 mg Q6H PRN IVP 09/15/16 06:30 (Tylenol) 650 mg Q6H PRN PO 09/15/16 06:30 (Auburn 5-325 Mg) 1 tab Q4H PRN PO 09/15/16 06:30 09/15/16 07:45 (Morphine Inj) 2 mg Q3H PRN IV 09/15/16 06:30 09/16/16 06:37 (Keyla-Colace) 1 tab BID PO 09/15/16 09:00 09/15/16 11:37 (Milk Of Magnesia Liq) 30 ml Q12H PRN PO 09/15/16 06:30 (Senokot) 17.2 mg Q12H PRN PO 09/15/16 06:30 (Dulcolax Supp) 10 mg DAILY PRN RECTAL 09/15/16 06:30 (Lactulose Liq) 30 ml DAILY PRN PO 09/15/16 06:30 (Tenormin) 100 mg DAILY PO 09/15/16 09:00 09/15/16 11:37 (Pravachol) 40 mg DAILY PO 09/15/16 09:00 09/15/16 11:38 (Flomax) 0.4 mg DAILY PO 09/15/16 12:15 09/15/16 13:52 Assessment and Plan Problem List: (1) Hematuria ICD Code: R31.9 Status: Acute (2) Inability to urinate ICD Code: R33.9 Status: Acute (3) History of prostate cancer ICD Code: Z85.46 Status: Acute Assessment and Plan -d/c CBI -irrigate catheter prn for clots -Add Pyridium, B&O suppository for bladder spasms -Flomax Juan Ramon Moura MD Sep 16, 2016 07:43
[2016-09-16] MEDS ORDERED: BELLADONNA ALKALOIDS/OPIUM 60 MG SUPP RECTAL PRN (07:45)
[2016-09-16] MEDS ORDERED: MORPHINE SULFATE 4 MG/ML INJ IV PUSH ONE (08:30)
--- NOTE | 2016-09-16 08:53 | RADRPT ---
EXAM DATE/TIME: 09/16/2016 08:25 [place] COMPARISON: No previous studies available for comparison. INDICATIONS : Bladder distention and pain. MEDICAL HISTORY : Carcinoma, prostate. Cardiovascular disease Hypertension SURGICAL HISTORY : None. ENCOUNTER: Initial ACUITY: 1 week PAIN SCORE: 10/10 LOCATION: Bilateral Abdomen/bladder/Genital pain. FINDINGS: Supine view of the abdomen was performed. The abdominal bowel gas pattern is normal. No abnormal ma sses, calcifications, or organomegaly is seen. The osseous structures are unremarkable. Right total hip arthroplasty. Degenerative changes of the spine. Brachytherapy seeds overlie the prostate. Nonobs tructive bowel gas pattern. CONCLUSION: No acute disease. Robert Moreland MD on September 16, 2016 at 8:51 Board Certified Radiologist. This report was verified electronically.
[2016-09-16] MEDS: PRAVASTATIN SOD 40 MG TAB PO SCH (09:19)
[2016-09-16] MEDS: PHENAZOPYRIDINE HCL 200 MG TAB PO SCH ×3 (09:19→20:30)
[2016-09-16] MEDS: TAMSULOSIN HCL 0.4 MG CAP PO SCH (09:19)
[2016-09-16] MEDS: ATENOLOL 100 MG TAB PO SCH (09:20)
[2016-09-16] MEDS: DOCUSATE SODIUM 50 MG/SENNA 8.6 MG TAB PO SCH ×2 (09:20→20:31)
[2016-09-16] MEDS: SODIUM CHLORIDE 0.9% FLUSH 10 ML FLUSH IV FLUSH SCH ×2 (09:27→20:30)
--- NOTE | 2016-09-16 10:26 | HHI.PR ---
Subjective Remarks Follow up for hematuria with urinary obstruction/retention. The patient reports he was in excruciating pain this morning with bladder pressure and pain into the penis. Patient was heard screaming out from his room. He states once the Chaidez and bladder was irrigated and clots were removed, he had significant relief. He is very hesitant about stopping CBI again because this is when his clots reoccurred. He does not feel comfortable for discharge. He has no other medical complaints including no fevers/chills, nausea/vomiting. Objective Vitals Vital Signs Date Time Temp Pulse Resp B/P Pulse Ox O2 Delivery O2 Flow Rate FiO2 09/16/16 07:15 97.7 76 18 146/70 95 09/16/16 04:00 98.0 78 18 143/68 98 09/15/16 20:44 98.0 66 22 143/78 98 09/15/16 17:43 98.8 67 18 151/80 94 09/15/16 16:28 97.4 67 16 118/62 95 09/15/16 11:47 98.3 77 18 141/68 95 09/15/16 11:47 98.3 77 18 141/68 95 I/O 09/15/16 09/15/16 09/15/16 09/16/16 09/16/16 09/16/16 07:00 15:00 23:00 07:00 15:00 23:00 Intake Total 250 ml 700 ml Output Total 1000 ml 3850 ml 2050 ml 2300 ml 600 ml Balance -1000 ml -3850 ml -1800 ml -1600 ml -600 ml Intake IV Total 250 ml 700 ml Output Urine Total 1000 ml 3850 ml 2050 ml 2300 ml 600 ml # Voids 2 Result Diagram: 09/16/16 0431 09/16/16 0431 Imaging Last Impressions Abdomen X-Ray 09/16/16 0000 Signed Impressions: Service Date/Time: Friday, September 16, 2016 08:25 - CONCLUSION: No acute disease. Robert Moreland MD Objective Remarks GENERAL: Well-nourished, well-developed middle aged male patient in [facility]. SKIN: Warm and dry. No rash. HEENT: Normocephalic. Atraumatic. Pupils equal and round. Mucous membranes pink and moist. NECK: Supple. Trachea midline. CARDIOVASCULAR: Regular rate and rhythm. S1, S2 noted. No murmur appreciated. RESPIRATORY: No accessory muscle use. Clear to auscultation. Breath sounds equal bilaterally. GASTROINTESTINAL: Abdomen soft, non-tender, nondistended. Normoactive bowel sounds x4. GENITOURINARY: Chaidez in place with pale yellow urine, no blood clots currently although Chaidez recently emptied. Suprapubic tenderness to palpation. MUSCULOSKELETAL: No obvious deformities. Extremities without clubbing, cyanosis , or edema. NEUROLOGICAL: Awake and alert. No obvious cranial nerve deficits. Motor grossly within normal limits. Normal speech. PSYCHIATRIC: Appropriate mood and affect; insight and judgment normal. Medications and IVs Current Medications Medications (Trade) Dose Ordered Sig/Kedar Route Start Time Stop Time Status Last Admin (D50w (Vial) Inj) 50 ml UNSCH PRN IV 09/15/16 06:30 Glucagon 1 mg 1 mg UNSCH PRN OTHER 09/15/16 06:30 Ceftriaxone Sodium 1000 mg/ Sodium Chloride 100 ml @ 200 mls/hr DAILY@0600 IV 09/15/16 06:30 09/16/16 06:06 (NS 1000 ml Inj) 1,000 ml @ 100 mls/hr Q10H IV 09/15/16 06:20 09/16/16 06:06 (NS Flush) 2 ml UNSCH PRN IV FLUSH 09/15/16 06:30 (NS Flush) 2 ml BID IV FLUSH 09/15/16 09:00 09/16/16 09:27 (Zofran Inj) 4 mg Q6H PRN IVP 09/15/16 06:30 (Tylenol) 650 mg Q6H PRN PO 09/15/16 06:30 (Follansbee 5-325 Mg) 1 tab Q4H PRN PO 09/15/16 06:30 09/15/16 07:45 (Morphine Inj) 2 mg Q3H PRN IV 09/15/16 06:30 09/16/16 06:37 (Keyla-Colace) 1 tab BID PO 09/15/16 09:00 09/16/16 09:20 (Milk Of Magnesia Liq) 30 ml Q12H PRN PO 09/15/16 06:30 (Senokot) 17.2 mg Q12H PRN PO 09/15/16 06:30 (Dulcolax Supp) 10 mg DAILY PRN RECTAL 09/15/16 06:30 (Lactulose Liq) 30 ml DAILY PRN PO 09/15/16 06:30 (Tenormin) 100 mg DAILY PO 09/15/16 09:00 09/16/16 09:20 (Pravachol) 40 mg DAILY PO 09/15/16 09:00 09/16/16 09:19 (Flomax) 0.4 mg DAILY PO 09/15/16 12:15 09/16/16 09:19 (Pyridium) 200 mg Q8HR PO 09/16/16 07:45 09/16/16 09:19 (B & O Supp) 60 mg Q6HR PRN RECTAL 09/16/16 07:45 A/P Problem List: (1) Hemorrhagic cystitis ICD Code: N30.91 Status: Acute (2) Inability to urinate ICD Code: R33.9 Status: Acute (3) Hematuria ICD Code: R31.9 Status: Acute Assessment and Plan 60-year-old male with history of prostate cancer 2008 s/p TURP/radiation, YO on CPAP at night, HTN, HLD, DM, atrial fibrillation s/p ablation, presents with a 1 day history hematuria and urinary retention. Acute Hematuria & Urinary Retention: suspect secondary to history of prostate cancer s/p radiation/TURP; now with hemorrhagic cystitis. CT abd/pelvis 09/14 images reviewed, shows no acute findings, mild perinephric stranding; no renal calculi or obstructive uropathy. S/p Chaidez placement in ER, started on CBI. -hold patient's aspirin for now -Consulted urology, seen by Dr. Moura -Started on flomax 0.4mg daily -Continue CBI until urine is clear, then plan to discharge with Chaidez in place -Follow up with urologist Dr. Moura as outpatient after discharge for void trial -Monitor BMP and H&H, currently stable with Hgb 12.7 -Continue IVF, Pain control with Follansbee prn and IV morphine prn -09/16-patient with recurrent obstruction s/p discontinuing CBI per Dr. Moura, RN discussed with Dr. Martinez, Chaidez irrigated, clots removed, and CBI restarted per Dr. Martinez -Dr. Moura also started on Pyridium and B&O suppository for bladder spasms -continue CBI and monitor again overnight UTI: UA on 09/14 with occ bacteria. +leukocytosis with WBC 13.9K. Preliminary urine culture with no growth so far. -continue on IV Rocephin 1G qd -monitor urine culture, currently with mixed gram positive christopher however will leave abx for now Diabetes Mellitus: chronic, hold patient's metformin for now -Monitor accu-checks and cover with low dose SSI Hypertension/Hyperlipidemia: chronic, stable -continue patient's atenolol and statin -monitor BP, adjust antihypertensives as needed YO: on CPAP, chronic -consult RT to continue patient's CPAP All other chronic medical conditions stable, continue home medications as appropriate. DVT Prophylaxis: teds/SCDs, avoid chemical prophylaxis with gross hematuria. Discharge Planning Pending further clinical improvement, not yet ready for discharge today. Needs to be off CBI for 12-24 hours with no complications prior to discharge. Lexii Escobar PA-C Sep 16, 2016 10:26 am
[2016-09-16] MEDS ORDERED: AMLO5TAB2 PO (19:35)
[2016-09-16] MEDS ORDERED: VALS1TAB65 PO (19:35)
[2016-09-16] MEDS ORDERED: TERA10CA3 PO (19:35)
[2016-09-16] MEDS ORDERED: GLIM2TAB PO (19:35)
[2016-09-16] MEDS ORDERED: TIZA4CAP3 PO (19:35)
[2016-09-17] MEDS: MORPHINE SULFATE 4 MG/ML INJ IV PRN ×2 (01:43→13:31)
[2016-09-17] MEDS: ACETAMINOPHEN/HYDROcodone 325 MG/5 MG TAB PO PRN ×2 (04:19→11:16)
[2016-09-17] MEDS ORDERED: ALPRAZolam 0.25 MG TAB PO ONE (04:30)
[2016-09-17 04:59] VITALS: BP 147/74; PULSE 73; RESP 18; TEMP 98.5; O2SAT 98
[2016-09-17] MEDS: PHENAZOPYRIDINE HCL 200 MG TAB PO SCH ×2 (06:08→15:17)
[2016-09-17] MEDS: cefTRIAXone INJ 1,000 MG in SODIUM CHLORIDE 0.9% INJ 100 ML IV SCH (06:09)
[2016-09-17] MEDS: INSULIN ASPART SUPPLEMENTAL SCALE SQ SCH ×2 (06:11→13:13)
[2016-09-17 07:11] VITALS: BP 178/84; PULSE 79; RESP 18; TEMP 97.5; O2SAT 94
--- NOTE | 2016-09-17 09:09 | HHI.PR ---
Subjective Remarks Follow-up for hematuria with urinary obstruction and retention. The patient states that bladder spasms have been improving overnight. He reports that he has had clear urine output and Chaidez collecting bag on CBI. He denies any fevers or chills. He has not had a bowel movement in several days, but reports poor appetite and does not feel constipated. Objective Vitals Vital Signs Date Time Temp Pulse Resp B/P Pulse Ox O2 Delivery O2 Flow Rate FiO2 09/17/16 07:11 97.5 79 18 178/84 94 09/17/16 04:59 98.5 73 18 147/74 98 09/16/16 23:52 97.8 69 18 166/77 98 09/16/16 20:00 98.0 77 18 131/68 94 09/16/16 19:44 97 09/16/16 15:36 98.0 72 20 142/66 94 09/16/16 11:50 98.5 65 20 136/88 97 I/O 09/16/16 09/16/16 09/16/16 09/17/16 09/17/16 09/17/16 07:00 15:00 23:00 07:00 15:00 23:00 Intake Total 700 ml 1680 ml 100 ml Output Total 2300 ml 1500 ml 5375 ml 0 ml 1375 ml Balance -1600 ml -1500 ml -3695 ml 100 ml -1375 ml Intake Oral 480 ml IV Total 700 ml 1200 ml 100 ml Output Urine Total 2300 ml 1500 ml 5375 ml 0 ml 1375 ml # Voids 2 1 # Bowel Movements 0 Result Diagram: 09/16/16 0431 09/16/16 0431 Imaging Last Impressions Abdomen X-Ray 09/16/16 0000 Signed Impressions: Service Date/Time: Friday, September 16, 2016 08:25 - CONCLUSION: No acute disease. Robert Moreland MD Objective Remarks GENERAL: Well-developed well-nourished. Obese. In no acute distress. SKIN: Warm and dry. No lesions noted. HEENT: Normocephalic. Pupils equal and round. Mucous membranes pink and moist. CARDIOVASCULAR: Regular rate and rhythm. No murmur appreciated. RESPIRATORY: No accessory muscle use. Clear to auscultation. Breath sounds equal bilaterally. GASTROINTESTINAL: Abdomen soft, non-tender, nondistended. Bowel sounds x4. : Chaidez in place with CBI. Urine was straw-colored in collecting bag with no signs of hematuria. No suprapubic TTP. MUSCULOSKELETAL: No obvious deformities. No clubbing or cyanosis. No edema. NEUROLOGICAL: Awake and alert. No focal neurological deficits. Moves upper and lower extremities spontaneously. Normal speech. PSYCHIATRIC: Appropriate mood and affect; insight and judgment normal. A/P Problem List: (1) Hemorrhagic cystitis ICD Code: N30.91 Status: Acute (2) Inability to urinate ICD Code: R33.9 Status: Acute (3) Hematuria ICD Code: R31.9 Status: Acute Assessment and Plan 60-year-old male with history of prostate cancer 2007 s/p TURP/radiation, YO on CPAP at night, HTN, HLD, DM, atrial fibrillation s/p ablation, presents with a 1 day history hematuria and urinary retention. Acute Hematuria & Urinary Retention: suspect secondary to history of prostate cancer s/p radiation/TURP; now with hemorrhagic cystitis. CT abd/pelvis 09/14 showed no acute findings, mild perinephric stranding; no renal calculi or obstructive uropathy. S/p Chaidez placement in ER, started on CBI. -hold patient's aspirin for now -Consulted urology, seen by Dr. Moura -Started on flomax 0.4mg daily, Pyridium and B&O suppository for bladder spasms -Continue CBI until urine is clear, then plan to discharge with Chaidez in place -Follow up with urologist Dr. Moura as outpatient after discharge for void trial -Monitor BMP and H&H, currently stable with Hgb 12.7 -Continue IVF, Pain control with Thornton prn and IV morphine prn, bowel regimen -09/16-failed discontinuing CBI with significant pain, Chaidez irrigated, clots removed, and CBI restarted per Dr. Martinez -09/17-Trial of discontinuing CBI and monitor -Follow-up additional urology recommendations UTI: UA on 09/14 with occ bacteria. +leukocytosis with WBC 13.9K. Urine culture growing mixed gram-positive christopher. Has remained afebrile throughout admission. -DC antibiotics. Diabetes Mellitus: chronic, hold patient's metformin for now -Monitor accu-checks and cover with low dose SSI Hypertension/Hyperlipidemia: chronic, stable -continue patient's atenolol and statin -monitor BP, adjust antihypertensives as needed YO: on CPAP, chronic -continue patient's CPAP All other chronic medical conditions stable, continue home medications as appropriate. DVT Prophylaxis: teds/SCDs, avoid chemical prophylaxis with gross hematuria. Discharge Planning Monitor clinically. Discharge planning if no further obstruction after stopping CBI. Hong Leach Sep 17, 2016 09:09
[2016-09-17] MEDS: SODIUM CHLOR 0.9% 1000 ML INJ 1,000 ML IV SCH (09:27)
[2016-09-17] MEDS: PRAVASTATIN SOD 40 MG TAB PO SCH (09:28)
[2016-09-17] MEDS: ATENOLOL 100 MG TAB PO SCH (09:28)
[2016-09-17] MEDS: TAMSULOSIN HCL 0.4 MG CAP PO SCH (09:28)
[2016-09-17] MEDS: SODIUM CHLORIDE 0.9% FLUSH 10 ML FLUSH IV FLUSH SCH (09:28)
[2016-09-17] MEDS ORDERED: MAGNESIUM HYDROXIDE SUSP 30 ML CUP PO ONE (09:30)
[2016-09-17] MEDS: DOCUSATE SODIUM 50 MG/SENNA 8.6 MG TAB PO SCH (11:16)
[2016-09-17 12:20] VITALS: BP 160/79; PULSE 70; RESP 14; TEMP 98.5; O2SAT 97
[2016-09-17] MEDS ORDERED: TAMS5CAP PO (14:50)
[2016-09-17] MEDS ORDERED: PHEN-430 PO (14:50)
[2016-09-17] MEDS ORDERED: BO60R RECTAL (14:50)
--- NOTE | 2016-09-17 14:58 | HHI.DS ---
Discharge Summary Admission Date Sep 15, 2016 at 06:33 Discharge Date: Sep 17, 2016 Admitting Diagnosis hematuria, inability to urinate, prostate cancer (1) Hemorrhagic cystitis ICD Code: N30.91 Diagnosis: Principal (2) Inability to urinate ICD Code: R33.9 Diagnosis: Principal (3) Hematuria ICD Code: R31.9 Diagnosis: Principal (4) History of prostate cancer ICD Code: Z85.46 Diagnosis: Secondary Procedures Melendez catheter placement with continuous bladder irrigation Brief History - From Admission 60-year-old male with history of prostate cancer 2007 s/p TURP/radiation, YO on CPAP at night, HTN, HLD, DM, atrial fibrillation s/p ablation, presents with a 1 day history hematuria and urinary retention. The patient initially presented to the ER last night 09/14/16 at 6pm with hematuria and urinary retention, Melendez was placed and removed, sent home on antibiotics Cipro 500mg bid and instructed to follow up with urologist Dr. Moura, however after returning home he was unable to urinate. He complains of a moderate amount of suprapubic bladder pressure without radiation, worse with sitting upright. The patient reports he was only able to produce very small dribble of urine output. He denies any fevers/chills. Denies any nausea/vomiting or diarrhea/ constipation but does report decreased appetite. Since his arrival to the ER today, a Melendez has been placed and started on continuous bladder irrigation. He has had significant relief but still with mild amount of bladder pressure and hematuria that is clearing up. He has no other medical complaints at this time. CBC/BMP: 09/16/16 0431 09/16/16 0431 Significant Findings Laboratory Tests Test 09/15/16 09/15/16 09/16/16 05:07 11:22 04:31 White Blood Count 13.9 TH/MM3 12.2 TH/MM3 (4.0-11.0) (4.0-11.0) Red Blood Count 4.18 MIL/MM3 4.02 MIL/MM3 (4.50-5.90) (4.50-5.90) Hemoglobin 12.7 GM/DL 12.7 GM/DL (13.0-17.0) (13.0-17.0) Hematocrit 38.0 % 36.5 % (39.0-51.0) (39.0-51.0) Neutrophils (%) (Auto) 77.3 % (16.0-70.0) Neutrophils # (Auto) 10.7 TH/MM3 (1.8-7.7) Monocytes # (Auto) 1.0 TH/MM3 1.1 TH/MM3 (0-0.9) (0-0.9) Blood Urea Nitrogen 24 MG/DL (7-18) Estimat Glomerular Filtration 87 ML/MIN (>89) Rate Random Glucose 127 MG/DL 122 MG/DL (74-106) (74-106) Monocytes (%) (Auto) 8.9 % (0.0-8.0) Imaging Last Impressions Abdomen X-Ray 09/16/16 0000 Signed Impressions: Service Date/Time: Friday, September 16, 2016 08:25 - CONCLUSION: No acute disease. Robert Moreland MD PE at Discharge GENERAL: Well-developed well-nourished. Obese. In no acute distress. SKIN: Warm and dry. No lesions noted. HEENT: Normocephalic. Pupils equal and round. Mucous membranes pink and moist. CARDIOVASCULAR: Regular rate and rhythm. No murmur appreciated. RESPIRATORY: No accessory muscle use. Clear to auscultation. Breath sounds equal bilaterally. GASTROINTESTINAL: Abdomen soft, non-tender, nondistended. Bowel sounds x4. : Melendez in place with CBI. Urine was straw-colored in collecting bag with no signs of hematuria. No suprapubic TTP. MUSCULOSKELETAL: No obvious deformities. No clubbing or cyanosis. No edema. NEUROLOGICAL: Awake and alert. No focal neurological deficits. Moves upper and lower extremities spontaneously. Normal speech. PSYCHIATRIC: Appropriate mood and affect; insight and judgment normal. Pt update on day of discharge CBI was stopped and patient spontaneously voided 800 cc of urine. He continued to complain of mild pelvic pressure, although only 36 cc of urine was left over on bladder scan. Urology was contacted who recommended void trial today, and cleared for discharge and outpatient follow-up with her without Melendez catheter pending results of void trial. Hospital Course 60-year-old male with history of prostate cancer 2008 s/p TURP/radiation, YO on CPAP at night, HTN, HLD, DM, atrial fibrillation s/p ablation, presents with a 1 day history hematuria and urinary retention. Acute Hematuria & Urinary Retention: suspect secondary to history of prostate cancer s/p radiation/TURP; now with hemorrhagic cystitis. CT abd/pelvis 09/14 showed no acute findings, mild perinephric stranding; no renal calculi or obstructive uropathy. S/p Melendez placement, started on CBI, initially with recurrent clotting after stopping CBI 09/16, however when CBI was stopped 09/17, patient was able to void by catheter spontaneously. -hold patient's aspirin for now -Consulted urology, seen by Dr. Moura, follow-up outpatient after DC -Started on flomax 0.4mg daily, Pyridium and B&O suppository for bladder spasms -Hemoglobin currently stable with Hgb 12.7 -passed voiding trial, no melendez at DC UTI: UA on 09/14 with occ bacteria. +leukocytosis with WBC 13.9K. Urine culture growing mixed gram-positive christopher. Has remained afebrile throughout admission. -DC antibiotics. Pt Condition on Discharge: Stable Discharge Disposition: Discharge Home Discharge Time: > 30 minutes Discharge Instructions DIET: Follow Instructions for: Heart Healthy Diet, Diabetic Diet Activities you can perform: Regular-No Restrictions Follow up Referrals: PCP Follow-up - 2-3 Days with Sary Drew M.d. ([facility]) Urology - 1 Week with Juan Ramon Moura MD New Medications: Belladonna-Opium Supp (Belladonna-Opium Supp) 16.2-60 Mg Supp 60 MG RECTAL Q6HR PRN BLADDER SPASM #15 SUPP Phenazopyridine (Phenazopyridine) 200 Mg Tab 200 MG PO Q8HR urinary burning #30 TAB Tamsulosin (Flomax) 0.4 Mg Cap 0.4 MG PO HS urinary retention #30 CAP Continued Medications: Amlodipine (Amlodipine) 5 Mg Tab 5 MG PO DAILY Blood Pressure Management #30 Ref 0 TAB Atenolol (Atenolol) 100 Mg Tab 100 MG PO DAILY Blood Pressure Management #30 Ref 0 TAB Glimepiride (Glimepiride) 2 Mg Tab 2 MG PO DAILY Take with breakfast or first main meal Blood Sugar Management #30 Ref 0 TAB Metformin (Metformin) 1,000 Mg Tab 1000 MG PO BID With a meal Blood Sugar Management #30 Ref 0 TAB Omeprazole (Omeprazole) 20 Mg Tab 20 MG PO DAILY #30 Ref 0 TAB Oxycodone-Acetaminophen (Oxycodone-Acetaminophen) 7.5-325 mg Tab 1 TAB PO Q6H PRN PAIN Ref 0 TAB Simvastatin (Simvastatin) 20 Mg Tab 20 MG PO DAILY Cholesterol Management #30 Ref 0 TAB Tizanidine (Tizanidine) 4 Mg Cap 4 MG PO TID Muscle Spasm Ref 0 CAP Valsartan (Valsartan) 160 Mg Tab 160 MG PO DAILY #30 Ref 0 TAB Discontinued Medications: Aspirin (Aspirin) 81 Mg Chew 81 MG CHEW DAILY Ref 0 TAB Ciprofloxacin (Cipro) 500 Mg Tab 500 MG PO BID Infection Days 10 Ref 0 TAB Terazosin (Terazosin) 10 Mg Cap 10 MG PO HS #30 Ref 0 CAP Hong Leach Sep 17, 2016 14:58 Hong Leach Sep 17, 2016 14:58
[2016-09-17 15:25] VITALS: BP 143/65; PULSE 73; RESP 16; TEMP 98.1; O2SAT 95
== END 2016-09-17 17:09 | disposition home or self-care (01) ==
LOC: NEPE 04:19 → NEDA 06:33 → NEPGCP 08:16
PROVIDERS: ADMIT Family Medicine; ATTEND Family Medicine
DX: N30.91 Cystitis, unspecified with hematuria (principal); R33.9 Retention of urine, unspecified; N13.9 Obstructive and reflux uropathy, unspecified; N32.89 Other specified disorders of bladder; R63.0 Anorexia; I10 Essential (primary) hypertension; G47.33 Obstructive sleep apnea (adult) (pediatric); E78.5 Hyperlipidemia, unspecified; E11.9 Type 2 diabetes mellitus without complications; I48.91 Unspecified atrial fibrillation; K21.9 Gastro-esophageal reflux disease without esophagitis; F41.9 Anxiety disorder, unspecified; F32.9 Major depressive disorder, single episode, unspecified; M19.90 Unspecified osteoarthritis, unspecified site; Z85.46 Personal history of malignant neoplasm of prostate; Z92.3 Personal history of irradiation; Z79.899 Other long term (current) drug therapy; Z79.82 Long term (current) use of aspirin; Z79.84 Long term (current) use of oral hypoglycemic drugs; Z96.641 Presence of right artificial hip joint
CPT/HCPCS: 74000; 80053; 82948; 85025; 99285; G0378; J0696; J2270; J7030

== ENCOUNTER 2017-04-17 16:23 | Emergency (ER) | payer OTHER ==
[~2017-04-17] VITALS: Ht 177.8 cm; Wt 110.0 kg
[~2017-04-17 16:23] MED LIST changes: +AMLO5TAB2 PO; -ASPI81CH CHEW; +BO60R RECTAL; -CIPR-9 PO; +GLIM2TAB PO; -OMEP20TA PO; +OMEP20TA93 PO; +PHEN-537 PO; +TAMS5CAP PO; +TIZA4CAP3 PO; +VALS1TAB65 PO
[2017-04-17 16:27] VITALS: BP 156/74; PULSE 93; RESP 18; TEMP 97.8; O2SAT 96
[2017-04-17 17:25] LABS: AUTOMATED NEUTROPHIL # 10.7 TH/MM3 (1.8-7.7); BASOPHIL % 0.4 % (0.0-2.0); EOSINOPHIL # 0.1 TH/MM3 (0-0.4); EOSINOPHIL % 0.6 % (0.0-4.0); HEMATOCRIT 40.5 % (39.0-51.0); HEMOGLOBIN 14.1 GM/DL (13.0-17.0); LYMPH % 11.8 % (9.0-44.0); LYMPHOCYTE # 1.6 TH/MM3 (1.0-4.8); MEAN CORPUSCULAR HEMOGLOBIN 31.6 PG (27.0-34.0); MEAN CORPUSCULAR HGB CONC 34.7 % (32.0-36.0); MEAN PLATELET VOLUME 7.3 FL (7.0-11.0); MONO % 6.2 % (0.0-8.0); MONOCYTE # 0.8 TH/MM3 (0-0.9); PLATELET COUNT 427 TH/MM3 (150-450); RED BLOOD COUNT 4.45 MIL/MM3 (4.50-5.90); RED CELL DISTRIBUTION WIDTH 12.8 % (11.6-17.2); WHITE BLOOD COUNT 13.2 TH/MM3 (4.0-11.0)
[2017-04-17 17:37] LABS: BILIRUBIN, URINE NEG (NEG); BLOOD, URINE NEG (NEG); GLUCOSE,URINE NEG (NEG); KETONE, URINE NEG (NEG); NITRITE,URINE NEG (NEG); URINE COLOR YELLOW (YELLW/STRAW); URINE LEUKOCYTE ESTERASE NEG (NEG)
[2017-04-17 17:42] LABS: ALBUMIN 4.6 GM/DL (3.4-5.0); AST (GOT) 23 U/L (15-37); BICARBONATE 26.9 MEQ/L (21.0-32.0); BLOOD UREA NITROGEN 15 MG/DL (7-18); CALCIUM 10.1 MG/DL (8.5-10.1); CHLORIDE 100 MEQ/L (98-107); GLOMERULAR FILTRATION RATE 75 ML/MIN (>89); GLUCOSE,RANDOM 146 MG/DL (74-106); SODIUM (NA) 134 MEQ/L (136-145)
[2017-04-17 17:43] LABS: ALT (GPT) 29 U/L (12-78)
[2017-04-17 17:45] LABS: ALKALINE PHOSPHATASE 65 U/L (45-117); TOTAL BILIRUBIN ADULT 0.5 MG/DL (0.2-1.0); TOTAL PROTEIN 9.1 GM/DL (6.4-8.2)
[2017-04-17] MEDS ORDERED: SODIUM CHLOR 0.9% 1000 ML INJ 1,000 ML IV ONE (18:15)
[2017-04-17] MEDS ORDERED: ONDANSETRON HCL 4 MG/2 ML VIAL IV PUSH ONE (18:15)
[2017-04-17 18:20] VITALS: BP 155/69; PULSE 83; RESP 16; O2SAT 97
[2017-04-17] MEDS ORDERED: DIATRIZOATE MEGLUM/DIATRIZOATE SOD 9 ML CUP ONE (18:41)
--- NOTE | 2017-04-17 20:31 | RADRPT ---
EXAM DATE/TIME: 04/17/2017 20:09 [facility] COMPARISON: CT ABDOMEN & PELVIS W/O CONTRAST, September 14, 2016, 17:43. INDICATIONS : Abdominal pain. Nausea. ORAL CONTRAST: Patient refused oral contrast. RADIATION DOSE: 22.00 CTDIvol (mGy) MEDICAL HISTORY : Carcinoma, prostate. Cardiovascular disease Diabetes mellitus type 2. SURGICAL HISTORY : TURP. Hip replacement. ENCOUNTER: Initial ACUITY: 1 day PAIN SCALE: 5/10 LOCATION: abdomen TECHNIQUE: Volumetric scanning of the abdomen and pelvis was performed. Using automated exposure control and ad justment of the mA and/or kV according to patient size, radiation dose was kept as low as reasonably achievable to obtain optimal diagnostic quality images. DICOM format image data is available electro nically for review and comparison. FINDINGS: LOWER LUNGS: The visualized lower lungs are clear. LIVER: Homogeneous density without lesion. There is no dilation of the biliary tree. No calcified gallston es. SPLEEN: Normal size without lesion. PANCREAS: Within normal limits. KIDNEYS: Normal in size and shape. Mild chronic perinephric streakiness is noted. There is no mass, stone, or hydronephrosis. ADRENAL GLANDS: Within normal limits. VASCULAR: There is no aortic aneurysm. BOWEL/MESENTERY: Few uncomplicated colonic diverticula are noted. No acute diverticulitis is noted ABDOMINAL WALL: Within normal limits. RETROPERITONEUM: There is no lymphadenopathy. BLADDER: No wall thickening or mass. REPRODUCTIVE: Radiation seed implants are noted in the expected region of the prostate gland INGUINAL: Right inguinal hernia containing only fat is noted. MUSCULOSKELETAL: Degenerative changes are noted throughout the thoracolumbar spine. Right hip replacement is noted CONCLUSION: 1. No acute intra-abdominal process. 2. Chronic perinephric streakiness. 3. Uncomplicated colonic diverticulosis. 4. Right inguinal hernia containing only fat. 5. Degenerative changes throughout the thoracolumbar spine. Julius Wallace MD on April 17, 2017 at 20:24 Board Certified Radiologist. This report was verified electronically.
--- NOTE | 2017-04-17 20:33 | PD ---
HPI Chief Complaint: GI Complaint Time Seen by Provider: 18:07 Travel History International Travel<30 days: No Contact w/Intl Traveler<30days: No Traveled to known affect area: No History of Present Illness HPI 61-year-old male came to the emergency room complaining of nausea and diarrhea for past 3-4 days. Patient says he has lost 7 pounds in past 3-4 days. He has unable to eat anything because of the intense nausea. No history of vomiting. Patient denies of any chest pain, headache or abdominal pain. Vital signs were stable. Patient appears to be anxious. Blood work was done in triage prior to patient's arrival. Patient has history of hypertension and diabetes. [facility] [place] Past Medical History Narrative Medical List of his past medical, surgical, social and family history reviewed from the nursing note. Arthritis: Yes Asthma: No Autoimmune Disease: No Blood Disorders: No Anxiety: Yes Depression: Yes Heart Rhythm Problems: Yes (reports hx irregular heart beat - HAD ABLATION) Cancer: Yes (prostate cancer) Cardiovascular Problems: No High Cholesterol: Yes Chemotherapy: No Chest Pain: No Congestive Heart Failure: No COPD: No Diabetes: Yes Patient Takes Glucophage: Yes Endocrine: Yes GERD: Yes Genitourinary: Yes Hypertension: Yes Immune Disorder: No Implanted Vascular Access Dvce: Yes Musculoskeletal: No Neurologic: No Psychiatric: No Reproductive: No Respiratory: Yes Radiation Therapy: Yes Sleep Apnea: Yes (uses c pap) Thyroid Disease: No Ulcer: Yes Past Surgical History Body Medical Devices: hip replacement and screws in left ankle Cardiac Surgery: Yes (ablation) Genitourinary Surgery: Yes (TURP) Oral Surgery: Yes (SINUS SX) Tonsillectomy: Yes Other Surgery: Yes Social History Alcohol Use: Yes (SELDOM) Tobacco Use: No Substance Use: No Allergies-Medications (Allergen,Severity, Reaction): Coded Allergies: No Known Allergies (Unverified Adverse Reaction, Unknown, 04/17/17) Comments No known drug allergies. Reported Meds & Prescriptions Reported Meds & Active Scripts Active Zofran Odt (Ondansetron Odt) 4 Mg Tab 4 Mg SL Q6HR PRN Phenazopyridine (Phenazopyridine HCl) 200 Mg Tab 200 Mg PO Q8HR Flomax (Tamsulosin HCl) 0.4 Mg Cap 0.4 Mg PO HS Reported Amlodipine (Amlodipine Besylate) 5 Mg Tab 5 Mg PO DAILY Tizanidine (Tizanidine HCl) 4 Mg Cap 4 Mg PO TID Glimepiride 2 Mg Tab 2 Mg PO DAILY Take with breakfast or first main meal Valsartan 160 Mg Tab 160 Mg PO DAILY Oxycodone-Acetaminophen 7.5-325 mg Tab 1 Tab PO Q6H PRN Simvastatin 20 Mg Tab 20 Mg PO DAILY Omeprazole 20 Mg Tab 20 Mg PO DAILY Metformin (Metformin HCl) 1,000 Mg Tab 1,000 Mg PO BID With a meal Narrative Medication List of his home medications reviewed from the nursing note. Review of Systems Except as stated in HPI: all other systems reviewed are Neg Gastrointestinal: Positive: Nausea, Diarrhea Physical Exam Narrative GENERAL: Awake, alert, obese, anxious SKIN: Focused skin assessment warm/dry. HEAD: Atraumatic. Normocephalic. EYES: Pupils equal and round. No scleral icterus. No injection or drainage. ENT: No nasal bleeding or discharge. Mucous membranes pink and moist. NECK: Trachea midline. No JVD. CARDIOVASCULAR: Regular rate and rhythm. No murmur appreciated. RESPIRATORY: No accessory muscle use. Clear to auscultation. Breath sounds equal bilaterally. GASTROINTESTINAL: Abdomen soft, non-tender, nondistended. Hepatic and splenic margins not palpable. MUSCULOSKELETAL: No obvious deformities. No clubbing. No cyanosis. No edema. NEUROLOGICAL: Awake and alert. No obvious cranial nerve deficits. Motor grossly within normal limits. Normal speech. PSYCHIATRIC: Appropriate mood and affect; insight and judgment normal. Data Data Last Documented VS Vital Signs Date Time Temp Pulse Resp B/P (MAP) Pulse Ox O2 Delivery O2 Flow Rate FiO2 04/17/17 21:36 04/17/17 18:20 83 16 97 Room Air 04/17/17 16:27 97.8 Orders Orders Complete Blood Count With Diff (04/17/17 16:58) Comprehensive Metabolic Panel (04/17/17 16:58) Urinalysis - C+S If Indicated (04/17/17 16:58) Ct Abd/Pel W/O Iv Contrast (04/17/17 ) Ondansetron Inj (Zofran Inj) (04/17/17 18:15) Sodium Chlor 0.9% 1000 Ml Inj (Ns 1000 M (04/17/17 18:15) Oral Contrast - Adult (04/17/17 18:32) Diatrizoate Delbert (Md Roberto Mandujano) (04/17/17 18:41) Electrocardiogram (04/17/17 ) Troponin I (04/17/17 20:42) Ed Discharge Order (04/17/17 21:24) Labs Laboratory Tests Test 04/17/17 17:00 04/17/17 17:05 Urine Color YELLOW Urine Turbidity CLEAR Urine pH 6.0 Urine Specific [place] 1.012 Urine Protein 100 mg/dL Urine Glucose (UA) NEG mg/dL Urine Ketones NEG mg/dL Urine Occult Blood NEG Urine Nitrite NEG Urine Bilirubin NEG Urine Urobilinogen LESS THAN 2.0 MG/DL Urine Leukocyte Esterase NEG Urine RBC LESS THAN 1 /hpf Urine WBC 1 /hpf Microscopic Urinalysis Comment CULT NOT INDICATED White Blood Count 13.2 TH/MM3 Red Blood Count 4.45 MIL/MM3 Hemoglobin 14.1 GM/DL Hematocrit 40.5 % Mean Corpuscular Volume 91.0 FL Mean Corpuscular Hemoglobin 31.6 PG Mean Corpuscular Hemoglobin Concent 34.7 % Red Cell Distribution Width 12.8 % Platelet Count 427 TH/MM3 Mean Platelet Volume 7.3 FL Neutrophils (%) (Auto) 81.0 % Lymphocytes (%) (Auto) 11.8 % Monocytes (%) (Auto) 6.2 % Eosinophils (%) (Auto) 0.6 % Basophils (%) (Auto) 0.4 % Neutrophils # (Auto) 10.7 TH/MM3 Lymphocytes # (Auto) 1.6 TH/MM3 Monocytes # (Auto) 0.8 TH/MM3 Eosinophils # (Auto) 0.1 TH/MM3 Basophils # (Auto) 0.0 TH/MM3 CBC Comment DIFF FINAL Differential Comment Blood Urea Nitrogen 15 MG/DL Creatinine 1.00 MG/DL Random Glucose 146 MG/DL Total Protein 9.1 GM/DL Albumin 4.6 GM/DL Calcium Level 10.1 MG/DL Alkaline Phosphatase 65 U/L Aspartate Amino Transf (AST/SGOT) 23 U/L Alanine Aminotransferase (ALT/SGPT) 29 U/L Total Bilirubin 0.5 MG/DL Sodium Level 134 MEQ/L Potassium Level 4.0 MEQ/L Chloride Level 100 MEQ/L Carbon Dioxide Level 26.9 MEQ/L Anion Gap 7 MEQ/L Estimat Glomerular Filtration Rate 75 ML/MIN Troponin I LESS THAN 0.02 NG/ML MDM Medical Decision Making Medical Screen Exam Complete: Yes Emergency Medical Condition: Yes Medical Record Reviewed: Yes Interpretation(s) Twelve-lead EKG was reviewed by me. Normal sinus rhythm, left axis deviation, LVH, intraventricular conduction delay, lateral T-wave inversions. Heart rate of 88 bpm. Differential Diagnosis Partial small bowel obstruction. Abdominal mass. Electrolyte abnormality, ACS Narrative Course 9:14 PM blood test results are back and patient had leukocytosis with left shift. I ordered a CAT scan of his abdomen and pelvis which has been read by the radiologist as no acute findings. UA is within normal limits. I do not have a good explanation of patient's nausea at this point. He was given IV fluid bolus and medication for nausea. Given his medical history I have ordered an EKG as well as a troponin. If troponin is negative I will discharge him home. Procedures EKG Prior to Arrival: No Diagnosis Primary Impression: Nausea Additional Impression: Dehydration Referrals: Primary Care Physician Additional Instructions: Please return to the ER if condition worsens or any other new concerns. Otherwise follow up with her primary care. Take the medication as per the prescription direction. Med/Other Pt SpecificInfo: Prescription(s) given Scripts Ondansetron Odt (Zofran Odt) 4 Mg Tab 4 MG SL Q6HR Y for Nausea/Vomiting, #10 TAB 0 Refills Prov: Rosita Jennings MD 04/17/17 Disposition: 01 DISCHARGE HOME Condition: Stable Rosita Jennings MD Apr 17, 2017 20:33
[2017-04-17] MEDS ORDERED: ZOFR4TAB3 SL (21:26)
--- NOTE | 2017-04-18 13:59 | EKG ---
Date Performed: 04/17/2017 Time Performed: 20:39:08 PTAGE: 61 years EKG: Sinus rhythm LEFT VENTRICULAR HYPERTROPHY AND ST-T CHANGE When compared to previous tracing, QRS voltage is great er, And QRS is wider. [place] is more leftward. ABNORMAL ECG PREVIOUS TRACING : 03/19/2011 11.52 DOCTOR: Bobo Pimentel Interpretating Date/Time 04/18/2017 13:57:52
== END 2017-04-17 21:46 | disposition home or self-care (01) ==
LOC: NEPD 16:23
DX: R11.0 Nausea (principal); E86.0 Dehydration; R94.31 Abnormal electrocardiogram [ECG] [EKG]; F32.9 Major depressive disorder, single episode, unspecified; I10 Essential (primary) hypertension; E78.00 Pure hypercholesterolemia, unspecified; E11.9 Type 2 diabetes mellitus without complications; Z85.46 Personal history of malignant neoplasm of prostate; Z96.649 Presence of unspecified artificial hip joint
CPT/HCPCS: 74176; 80053; 81001; 84484; 85025; 93005; 96374; 99285; J2405; J7030; Q9963